=== PATIENT | female | born 1955 | race Caucasian/White ===

== ENCOUNTER 2017-02-15 15:37 | Emergency (ER) | payer OTHER ==
[2017-02-15 16:18] VITALS: BMI 29.0
--- NOTE | 2017-02-15 17:20 | PDOC ---
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 The patient reports coughing up 1-2 tablespoons of bright red blood 2 nights ago, with no hemoptysis since. Not on blood thinners. The patient is currently on the liver transplant list at [facility] and when she called Dr. Rios's office today, they advised her to go to the closest ED. She denies recent fevers, chills, headache or dizziness. She denies N/V/D, recent constipation. She denies recent dysuria, frequency, urgency or hematuria. She denies recent chest pain or shortness of breath. Allergies: NKA Past surgical history: None reported. Social history: Nonsmoker. Denies EtOH use and recreational drug use. Primary Care Physician: Dr. Rios [phone] <Popeye Rivera - Last Filed: 02/15/17 18:56> <Art Iglesias - Last Filed: 02/15/17 23:32> - General Chief Complaint: Hemoptysis Stated Complaint: VOMITING BLOOD (PCP SENT) Time Seen by Provider: 02/15/17 17:20 Past History <Popeye Rivera - Last Filed: 02/15/17 18:56> - Past Medical History GI Disorders: Yes (ESOPHAGEAL VARICES) Liver Disease: Yes (CIRRHOSIS (PSC), ON TRANSPLANT LIST.) - Surgical History Abdominal Surgery: Yes (ERCP, VARICES BANDING, STENTS) - Immunization History Td Vaccination: Yes Immunization Up to Date: (UNSURE) - Psycho/Social/Smoking Cessation Hx Anxiety: No Suicidal Ideation: No Smoking Status: No Smoking History: Never smoked Years of Tobacco Use: 0 Have you smoked in the past 12 months: No Number of Cigarettes Smoked Daily: 0 Cigars Per Day: 0 Hx Alcohol Use: No Drug/Substance Use Hx: No Substance Use Type: None <Art Iglesias - Last Filed: 02/15/17 23:32> - Past Medical History Allergies/Adverse Reactions: Allergies Allergy/AdvReac Type Severity Reaction Status Date / Time amoxicillin [Amoxicillin] Allergy Verified 02/15/17 16:18 Home Medications: Ambulatory Orders Nadolol [Corgard] 40 mg PO DAILY #0 tablet 01/14/12 Furosemide [Lasix -] 40 mg PO DAILY 02/15/17 Spironolactone 50 mg PO DAILY 02/15/17 Review of Systems - Review of Systems Able to Perform ROS?: Yes Comments:: 02/15/17 18:48 GENERAL/CONSTITUTIONAL: No fever or chills. No weakness. HEAD, EYES, EARS, NOSE AND THROAT: No change in vision. No ear pain or discharge. No sore throat. CARDIOVASCULAR: No chest pain or shortness of breath. RESPIRATORY: No cough, wheezing, or hemoptysis. GASTROINTESTINAL: +hemoptysis. No or constipation. No N/V/D. GENITOURINARY: No dysuria, frequency, or change in urination. MUSCULOSKELETAL: No joint or muscle swelling or pain. No neck or back pain. SKIN: No rash NEUROLOGIC: No headache, vertigo, loss of consciousness, or change in strength/ sensation. ENDOCRINE: No increased thirst. No abnormal weight change. HEMATOLOGIC/LYMPHATIC: No anemia, easy bleeding, or history of blood clots. ALLERGIC/IMMUNOLOGIC: No hives or skin allergy. <Popeye Rivera - Last Filed: 02/15/17 18:56> *Physical Exam - Vital Signs Last Vital Signs Temp Pulse Resp BP Pulse Ox 97.6 F 63 20 119/54 98 02/15/17 16:15 02/15/17 16:15 02/15/17 16:15 02/15/17 16:15 02/15/17 16:15 - Physical Exam Comments: 02/15/17 18:48 GENERAL: Awake, alert, and fully oriented, in no acute distress HEAD: No signs of trauma EYES: PERRLA, EOMI, sclera anicteric, conjunctiva clear ENT: Auricles normal inspection, hearing grossly normal, nares patent, oropharynx clear without exudates. Moist mucosa NECK: Normal ROM, supple, no lymphadenopathy, JVD, or masses LUNGS: Breath sounds equal, clear to auscultation bilaterally. No wheezes, and no crackles HEART: Regular rate and rhythm, normal S1 and S2, no murmurs, rubs or gallops ABDOMEN: Not remarkable. Soft, nontender, normoactive bowel sounds. No guarding , no rebound. No masses EXTREMITIES: Normal range of motion, no edema. No clubbing or cyanosis. No cords , erythema, or tenderness NEUROLOGICAL: Normal speech, cranial nerves intact, negative pronator drift, 5/ 5 strength in all 4 extremities, normal sensation to light touch in all 4 extremities, normal cerebellar exam, normal gait, normal reflexes and tone SKIN: Warm, Dry, normal turgor, no rashes or lesions noted. 02/15/17 18:56 <Popeye Rivera - Last Filed: 02/15/17 18:56> - Vital Signs Last Vital Signs Temp Pulse Resp BP Pulse Ox 97.6 F 63 20 119/54 98 02/15/17 16:15 02/15/17 16:15 02/15/17 16:15 02/15/17 16:15 02/15/17 16:15 <Art Iglesias - Last Filed: 02/15/17 23:32> ED Treatment Course - LABORATORY CBC & Chemistry Diagram: 02/15/17 20:10 02/15/17 20:10 <Art Iglesias - Last Filed: 02/15/17 23:32> Medical Decision Making - Medical Decision Making 02/15/17 18:26 61yo F hx PSC on liver transplant list p/w hemoptysis 2 days ago. Exam and vitals here unremarkable. Upon speaking with Jennifer, the regional education coordinator at [facility], pt frequently has hemoptysis thought to be 2/2 lung nodules and chronic MAC infection. We agreed upon a plan to check labs, observe the patient and if our work up was negative, pt can follow up with Dr. Rios within 1 week. -labs -CXR -call Jennifer again post labs/CXR -reassess 02/15/17 19:00 Labs pending. Pt signed out to Dr. Willingham for further evaluation and management. <Art Iglesias - Last Filed: 02/15/17 23:32> *DC/Admit/Observation/Transfer - Attestations Scribe Attestion: 02/15/17 18:48 Documentation prepared by Popeye Rivera, acting as medical psychotherapist for Art Iglesias MD. <Popeye Rivera - Last Filed: 02/15/17 18:56> - Discharge Dispostion Admit: No - Attestations Physician Attestion: 02/15/17 23:32 I, Dr. Art Iglesias MD, attest that this document has been prepared under my direction and personally reviewed by me in its entirety. I further attest, that it accurately reflects all work, treatment, procedures and medical decision -making performed by me. <Art Iglesias - Last Filed: 02/15/17 23:32> Diagnosis at time of Disposition: Hemoptysis, unspecified - Discharge Dispostion Disposition: HOME Condition at time of disposition: Stable - Referrals Referrals: Antelmo Rios [Primary Care Provider] - - Patient Instructions Printed Discharge Instructions: DI for Hemoptysis Additional Instructions: Please follow up with Dr. Rios at [facility] in the morning.
[2017-02-15 19:21] LABS: BASOPHIL 0.6 % (0-2.0); EOSINOPHIL 3.5 % (0-4.5); MCH 32.8 pg (25.7-33.7); MCHC 34.2 g/dl (32.0-36.0); MEAN CELL VOLUME 95.7 fl (80-96); MEAN PLT VOLUME 10.3 fl (7.5-11.1); NEUTROPHILS 67.8 % (42.8-82.8); PLATELET COUNT 78 K/MM3 (134-434); RDW 14.4 % (11.6-15.6); WHITE BLOOD COUNT 3.3 K/mm3 (4.0-10.0)
[2017-02-15 19:28] VITALS: PULSE 57
[2017-02-15 20:22] LABS: MCH 32.4 pg (25.7-33.7); MCHC 33.7 g/dl (32.0-36.0); MEAN CELL VOLUME 96.1 fl (80-96); MEAN PLT VOLUME 10.5 fl (7.5-11.1); PLATELET COUNT 70 K/MM3 (134-434); RDW 14.8 % (11.6-15.6); WHITE BLOOD COUNT 3.6 K/mm3 (4.0-10.0)
[2017-02-15 20:35] LABS: INR 1.51 (0.82-1.09); PROTHROMBIN TIME (PATIENT) 16.7 SEC (9.98-11.88)
[2017-02-15 20:37] LABS: ACTIVATED PTT 32.8 SECONDS (26.9-34.4)
[2017-02-15 20:53] LABS: ANION GAP 6 (8-16); BILIRUBIN,TOTAL 2.6 mg/dL (0.2-1.0); CALCIUM 8.6 mg/dL (8.5-10.1); CO2 25 mmol/L (21-32); GLUCOSE,RANDOM 78 mg/dL (74-106); SGOT/AST 87 U/L (15-37); SGPT/ALT 63 U/L (12-78); TOT PROT 8.2 g/dl (6.4-8.2)
[2017-02-15 20:54] LABS: ALK PHOS 278 U/L (45-117)
[2017-02-15 21:07] LABS: PLATELET ESTIMATE DECREASED (NORMAL)
--- NOTE | 2017-02-15 21:07 | PDOC ---
*Physical Exam - Vital Signs Last Vital Signs Temp Pulse Resp BP Pulse Ox 98.1 F 57 L 17 127/53 100 02/15/17 19:27 02/15/17 19:27 02/15/17 19:27 02/15/17 19:27 02/15/17 19:27 ED Treatment Course - LABORATORY CBC & Chemistry Diagram: 02/15/17 20:10 02/15/17 20:10 - ADDITIONAL ORDERS Additional order review: Laboratory Results 02/15/17 02/15/17 02/15/17 20:10 20:10 19:05 INR 1.51 H PTT (Actin FS) 32.8 Sodium 135 L Potassium 4.2 Chloride 104 Carbon Dioxide 25 Anion Gap 6 L BUN 20 H D Creatinine 1.0 D Creat Clearance w eGFR 56.37 Random Glucose 78 D Calcium 8.6 Total Bilirubin 2.6 H D AST 87 H ALT 63 Alkaline Phosphatase 278 H D Total Protein 8.2 Albumin 3.0 L Blood Type Cancelled Antibody Screen Cancelled Spec Expiration Date Cancelled 02/15/17 02/15/17 19:05 19:05 INR Cancelled PTT (Actin FS) Cancelled Sodium Cancelled Potassium Cancelled Chloride Cancelled Carbon Dioxide Cancelled Anion Gap Cancelled BUN Cancelled Creatinine Cancelled Creat Clearance w eGFR Cancelled Random Glucose Cancelled Calcium Cancelled Total Bilirubin Cancelled AST Cancelled ALT Cancelled Alkaline Phosphatase Cancelled Total Protein Cancelled Albumin Cancelled Blood Type Antibody Screen Spec Expiration Date 02/15/17 02/15/17 20:10 19:05 RBC 3.86 4.00 MCV 96.1 H 95.7 MCHC 33.7 34.2 RDW 14.8 14.4 MPV 10.5 10.3 Neutrophils % Y 67.8 Lymphocytes % Y 17.8 Monocytes % 10.3 H Eosinophils % 3.5 Basophils % 0.6 Medical Decision Making - Medical Decision Making 02/15/17 21:04 Spoke to Jennifer at [facility]. Pt will be discharged and she will be advised to follow up with Dr. Wagner at [facility] in the morning. *DC/Admit/Observation/Transfer Diagnosis at time of Disposition: Hemoptysis - Discharge Dispostion Disposition: HOME Condition at time of disposition: Stable Admit: No - Referrals Referrals: Antelmo Wagner [Primary Care Provider] - - Patient Instructions Printed Discharge Instructions: DI for Hemoptysis Additional Instructions: Please follow up with Dr. Wagner at [facility] in the morning. - Post Discharge Activity
[2017-02-15 21:08] LABS: TOTAL CELLS COUNTED 100
[2017-02-15 21:18] VITALS: BP 118/52; TEMP 97.4
== END 2017-02-15 21:18 | disposition home or self-care (01) ==
LOC: JER 15:37
DX: R04.2 Hemoptysis (principal); K74.69 Other cirrhosis of liver
CPT/HCPCS: 36415; 71020-TC; 80053; 85025; 85610; 85730; 86850; 86900; 86901; 99283-25

== ENCOUNTER 2017-06-16 13:09 | Observation (INO) | payer OTHER ==
[2017-06-16 13:27] VITALS: BMI 29.8
--- NOTE | 2017-06-16 14:03 | PDOC ---
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 The patient reports coughing up blood beginning earlier this morning. She contacted her physician Dr. Rios who recommended she present to the ED for evaluation. The patient reports coughing up a total of about 1/2 a cup of blood since this morning. She notes that she has had a history of hemoptysis in the past thought to be due to her MAC infection and lung nodules. She currently denies any fevers, chills, chest pain, abdominal pain, nausea, vomiting, or changes with urination or bowel movements. Past History - Past Medical History Allergies/Adverse Reactions: Allergies Allergy/AdvReac Type Severity Reaction Status Date / Time amoxicillin [Amoxicillin] Allergy Verified 06/16/17 13:23 Home Medications: Ambulatory Orders Nadolol [Corgard] 40 mg PO DAILY #0 tablet 01/14/12 Furosemide [Lasix -] 40 mg PO DAILY 02/15/17 Carbamide Peroxide [Ear Drops] 15 ml OT ASDIR 06/16/17 Omeprazole 20 mg PO ASDIR PRN 06/16/17 COPD: No GI Disorders: Yes (ESOPHAGEAL VARICES) Liver Disease: Yes (CIRRHOSIS (PSC), ON TRANSPLANT LIST.) - Surgical History Abdominal Surgery: Yes (ERCP, VARICES BANDING, STENTS) - Immunization History Td Vaccination: Yes Immunization Up to Date: (UNSURE) - Suicide/Smoking/Psychosocial Hx Smoking Status: No Smoking History: Never smoked Years of Tobacco Use: 0 Have you smoked in the past 12 months: No Number of Cigarettes Smoked Daily: 0 Cigars Per Day: 0 Hx Alcohol Use: No Drug/Substance Use Hx: No Substance Use Type: None Review of Systems - Review of Systems Comments:: 06/16/17 14:33 Constitutional: No fevers, chills, fatigue, malaise HEENT: No Rhinorrhea, nasal congestion, visual changes Cardiovascular: No chest pain, syncope, palpitations, lightheadedness Respiratory: SOB, Hemoptysis. No Cough, Gastrointestinal: No Abdominal pain, Nausea, Vomiting, Constipation, Diarrhea, Melena Genitourinary: No Dysuria, Frequency, Urgency, Hesitancy, Hematuria, Flank pain Musculoskeletal: No Myalgia, arthralgia Skin: No rashes, bruising, pallor Neurologic: No Headache, Dizziness, Numbness, Weakness, or Tingling Psychiatric: No Hallucinations. No SI or HI *Physical Exam - Vital Signs Last Vital Signs Temp Pulse Resp BP Pulse Ox 97.8 F 65 19 110/60 99 06/16/17 13:23 06/16/17 13:23 06/16/17 13:23 06/16/17 13:23 06/16/17 13:23 - Physical Exam Comments: 06/16/17 14:34 General Appearance: Nourished. No Apparent Distress HEENT: EOMI, JENNIFER. No Pharyngeal Erythema, Tonsillar Exudate, Tonsillar Erythema Neck: No Cervical Lymphadenopathy Respiratory/Chest: Lungs Clear, Normal Breath Sounds. No Crackles, Rales, Rhonchi, Wheezing Cardiovascular: Regular Rhythm, Regular Rate. No Murmur, Gallops, Rubs Gastrointestinal/Abdominal: Normal Bowel Sounds, Soft. No Guarding, Rebound, Tenderness Musculoskeletal: No CVA Tenderness Extremity: No lower extremity edema noted on exam. 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 Differential includes but is not limited to: Anemia, MAC, chronic hemoptysis, infectious, metabolic derangement. Given her similar symptoms to previous presentations for hemoptysis, it is likely her current symptoms are related. We will obtain a cbc, cmp, coags, type and screen , and chest plain film to evaluate further. We will continue to monitor and reassess. 06/16/17 18:00 CBC, cmp, coags are unremarkable. Chest plain film does not demonstrate any new changes. We attempted to get in contact with the patient's primary Dr. Rios , however, have been unsuccessful thus far. Given the patient has not had a ct chest in several years here and that she states her symptoms are the worse than they have been in the past, we will obtain a ct chest to evaluate further. 06/16/17 19:00 Patient signed out to the night team. Dispo pending CT chest. *DC/Admit/Observation/Transfer Diagnosis at time of Disposition: Hemoptysis - Referrals - Patient Instructions - Post Discharge Activity
--- NOTE | 2017-06-16 14:14 | PDOC ---
Attending Attestation - Resident Resident Name: Aly Cortezel - ED Attending Attestation I have performed the following: I have examined & evaluated the patient, The case was reviewed & discussed with the resident, I agree w/resident's findings & plan, Exceptions are as noted - HPI HPI: 06/16/17 14:13 62y F hx of chronic MAC infection eso varices, liver cirrhosis, on transplant list, secondary to Primary sclerosing cholangitis presents with hemoptysis. Pt states she was feeling well recently, was greg gto a doctors appointment when she started coughing and eventually coughed up some blood. Pt endorses mild sob - states she currently is feeling better without any cough. She states when she takes her cough medicine, it usually is enough to stop her coughing. pt denies any lightheadedness, cp, neff, palpitations. was recently on abx for her MAC ( follows up with ID at [facility]) on exam pts lungs are clear she is in no acut edistress cardiac exam reveals rrr, no m/r/g mild pitting edema in the LE b/l without calf tenderness. vitals are normal - no signs of hypotension, tachycardia suspect mild hemoptysis due to her MAC will r/o anemia cxr to ro mass will d/w with her pmd at dispo - Physicial Exam PE: 06/18/17 08:21 see abve - Medical Decision Making 06/18/17 08:22 se above
[2017-06-16 17:09] LABS: BASO % 0.1 % (0-2.0); EOS % 2.2 % (0-4.5); HEMATOCRIT 38.7 % (32.4-45.2); HEMOGLOBIN 12.8 GM/dL (10.7-15.3); LYMPH % 18.9 % (8-40); MCH 32.1 pg (25.7-33.7); MCHC 33.1 g/dl (32.0-36.0); MEAN PLT VOLUME 10.4 fl (7.5-11.1); MONO % 9.4 % (3.8-10.2); NEUT % 69.4 % (42.8-82.8); PLATELET COUNT 67 K/MM3 (134-434); RBC 3.99 M/mm3 (3.60-5.2); RDW 14.6 % (11.6-15.6); WHITE BLOOD COUNT 2.3 K/mm3 (4.0-10.0)
[2017-06-16 17:10] LABS: INR 1.4 (0.82-1.09); PROTHROMBIN TIME (PATIENT) 15.8 SEC (9.98-11.88)
[2017-06-16 17:12] LABS: ACTIVATED PTT 35.8 SECONDS (26.9-34.4)
[2017-06-16 17:40] LABS: ALBUMIN 2.8 g/dl (3.4-5.0); ANION GAP 6 (8-16); BLOOD UREA NITROGEN 19 mg/dL (7-18); CALCIUM 7.8 mg/dL (8.5-10.1); CHLORIDE 106 mmol/L (98-107); CO2 27 mmol/L (21-32); CREATININE 0.9 mg/dL (0.55-1.02); GLUCOSE,RANDOM 85 mg/dL (74-106); POTASSIUM 3.9 mmol/L (3.5-5.1); SGOT/AST 63 U/L (15-37); SGPT/ALT 50 U/L (12-78); SODIUM 139 mmol/L (136-145)
[2017-06-16 17:42] LABS: ALK PHOS 263 U/L (45-117); BILIRUBIN,TOTAL 2.2 mg/dL (0.2-1.0); TOT PROT 7.9 g/dl (6.4-8.2)
--- NOTE | 2017-06-16 22:38 | PDOC ---
History of Present Illness - General Chief Complaint: Hemoptysis Stated Complaint: COUGHING BLOOD Time Seen by Provider: 06/16/17 13:47 Past History - Past Medical History Allergies/Adverse Reactions: Allergies Allergy/AdvReac Type Severity Reaction Status Date / Time amoxicillin [Amoxicillin] Allergy Verified 06/16/17 13:23 Home Medications: Ambulatory Orders Nadolol [Corgard] 40 mg PO DAILY #0 tablet 01/14/12 Furosemide [Lasix -] 40 mg PO DAILY 02/15/17 Carbamide Peroxide [Ear Drops] 15 ml OT ASDIR 06/16/17 Omeprazole 20 mg PO ASDIR PRN 06/16/17 COPD: No GI Disorders: Yes (ESOPHAGEAL VARICES) Liver Disease: Yes (CIRRHOSIS (PSC), ON TRANSPLANT LIST.) - Surgical History Abdominal Surgery: Yes (ERCP, VARICES BANDING, STENTS) - Immunization History Td Vaccination: Yes Immunization Up to Date: (UNSURE) - Suicide/Smoking/Psychosocial Hx Smoking Status: No Smoking History: Never smoked Years of Tobacco Use: 0 Have you smoked in the past 12 months: No Number of Cigarettes Smoked Daily: 0 Cigars Per Day: 0 Hx Alcohol Use: No Drug/Substance Use Hx: No Substance Use Type: None *Physical Exam - Vital Signs Last Vital Signs Temp Pulse Resp BP Pulse Ox 97.8 F 65 19 110/60 99 06/16/17 13:23 06/16/17 13:23 06/16/17 13:23 06/16/17 13:23 06/16/17 13:23 ED Treatment Course - LABORATORY CBC & Chemistry Diagram: 06/16/17 16:30 06/16/17 16:30 - ADDITIONAL ORDERS Additional order review: Laboratory Results 06/16/17 06/16/17 06/16/17 16:30 16:30 16:30 PT with INR 15.80 H INR 1.40 H PTT (Actin FS) 35.8 H Sodium 139 Potassium 3.9 Chloride 106 Carbon Dioxide 27 Anion Gap 6 L BUN 19 H Creatinine 0.9 Creat Clearance w eGFR > 60 Random Glucose 85 Calcium 7.8 L Total Bilirubin 2.2 H AST 63 H D ALT 50 D Alkaline Phosphatase 263 H Total Protein 7.9 Albumin 2.8 L Blood Type O NEGATIVE Antibody Screen Negative 06/16/17 16:30 RBC 3.99 MCV 97.0 H MCHC 33.1 RDW 14.6 MPV 10.4 Neutrophils % 69.4 Lymphocytes % 18.9 Monocytes % 9.4 Eosinophils % 2.2 Basophils % 0.1 Medical Decision Making - Medical Decision Making 06/16/17 22:37 Pt was signed out by day team. Pt is a 62 y/o F with complex medical history including chronic MAC, lung nodules, cirrhosis 2/2 cholangitis, and esophageal varices who came to ED with hemoptysis. Pt is comfortable, but still having hempoptysis. CT significant for bronchial wall thickening, traction bronchiectasis, new solitary pulm nodule, amongst other findings. I've spoken with pt's doctor at [place] Dr. Graves ([phone]) several times throughout the evening providing updates. Her recommendation was to admit the pt for 24 hours of observation due to the fact that the patient is still having hemoptysis and should be monitored. *DC/Admit/Observation/Transfer Diagnosis at time of Disposition: Hemoptysis - Discharge Dispostion Admit: Yes - Referrals - Patient Instructions - Post Discharge Activity
--- NOTE | 2017-06-16 23:07 | PN ---
Teaching Attending Note Name of Resident: Ana Tabares ATTENDING PHYSICIAN STATEMENT I saw and evaluated the patient. Chart, data, imaging reviewed. I reviewed the resident's note and discussed the case with the resident. I agree with the resident's findings and plan as documented. SUBJECTIVE: 62F with PMH of hemoptysis 2/2 chronic MAC infection, 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 She has had scant amounts of blood visible in cough, about half a cup. Denied any hematemesis. Patient has not been taking and anticoagulation. OBJECTIVE: Last Vital Signs Temp Pulse Resp BP Pulse Ox 97.6 F 73 16 105/65 98 06/17/17 06:19 06/17/17 06:19 06/17/17 06:19 06/17/17 06:19 06/17/17 06:19 general -nad, aaox3, communicates fluently heent- at, nc , moist oral mucosa neck -supple, no masses, no jvd cv -s1+s2+ rrr chest- cta b/l abdomen- soft, nt, no masses appreciated ext- no swelling Abnormal Lab Results 06/16/17 06/16/17 06/16/17 16:30 16:30 16:30 WBC 2.3 L D RBC MCV 97.0 H Plt Count 67 L PT with INR 15.80 H INR 1.40 H PTT (Actin FS) 35.8 H Anion Gap 6 L BUN 19 H Calcium 7.8 L Total Bilirubin 2.2 H AST 63 H D Alkaline Phosphatase 263 H Albumin 2.8 L 06/17/17 06/17/17 05:58 05:58 WBC 2.2 L RBC 3.46 L MCV 96.3 H Plt Count 59 L PT with INR 16.90 H INR 1.50 H PTT (Actin FS) Anion Gap BUN Calcium Total Bilirubin AST Alkaline Phosphatase Albumin Chest CT -> Bronchial wall thickening. Traction bronchiectasis. Numerous nodules. ASSESSMENT AND PLAN: #Hemoptysis - in setting of elevated coagulation studies 2/2 liver failure. -observation -vitamin K 5 mg PO ordered -monitor H,H and signs of subsequent hematemesis. -avoid anticoagulants and antiplatelet agents -if worsening hemoptysis, consider FFPs #MAC- pulmonary?- currently off antibiotics, numerous nodules seen on chest ct -obtain records about treatment history from outside hospital -continue home medications for chronic medical problems #DVT ppx - SCDs -avoid heparin as pt was with hemoptysis
--- NOTE | 2017-06-16 23:26 | HP ---
CHIEF COMPLAINT: hemoptysis PCP: Dr. 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 Pt reports ~ 1/2 cup blood coughed up since this morning, last episode prior to Chest CT (~7: 30pm). Pt is not on any blood thinners. Pt denies pain. Pt's last visit to this ER in 02/2017, for same presentation. Pt reports she follow-up with her PCP until the hemoptysis stopped last time. Pt reports taking different antibiotics for her chronic MAC infection, but not currently on any antibiotics per her PCP's instructions. Pt denies chest pain, palpitations, sob, abdominal pain, nausea, vomiting, hematemesis, hematuria, hematochezia, melena. ER course was notable for: (1) CXR (2) Chest CT -> Bronchial wall thickening. Traction bronchiectasis. Numerous nodules. (3) CBC -> h/h wnl Recent Travel: denies PAST MEDICAL HISTORY: as above PAST SURGICAL HISTORY: ERCP varices banding (does not recall when) stents Social History: Smoking: denies Alcohol: denies Drugs: denies Work: in an office building Allergies amoxicillin [Amoxicillin] Allergy (Verified 06/16/17 13:23) HOME MEDICATIONS: Home Medications Medication Instructions Recorded Nadolol [Corgard] 40 mg PO DAILY #0 tablet 01/14/12 Furosemide [Lasix -] 40 mg PO DAILY 02/15/17 Carbamide Peroxide [Ear Drops] 15 ml OT ASDIR 06/16/17 Omeprazole 20 mg PO ASDIR PRN 06/16/17 REVIEW OF SYSTEMS CONSTITUTIONAL: Absent: fever, chills, diaphoresis, fatigue, malaise HEENT: Absent: rhinorrhea, nasal congestion, throat pain, visual changes CARDIOVASCULAR: Absent: chest pain, syncope, palpitations, irregular heart rate, lightheadedness , peripheral edema RESPIRATORY: hemoptysis, cough Absent: shortness of breath, wheezing, stridor GASTROINTESTINAL: Absent: abdominal pain, abdominal distension, nausea, vomiting, diarrhea, constipation, melena, hematochezia GENITOURINARY: Absent: dysuria, frequency, urgency, hesitancy, hematuria, flank pain MUSCULOSKELETAL: Absent: myalgia, arthralgia SKIN: Absent: rash, itching, pallor HEMATOLOGIC/IMMUNOLOGIC: Absent: easy bleeding, easy bruising NEUROLOGIC: mild dizziness when having hemoptysis Absent: headache, focal weakness or paresthesias PHYSICAL EXAMINATION Vital Signs - 24 hr 06/16/17 13:23 Temperature 97.8 F Pulse Rate 65 Respiratory 19 Rate Blood Pressure 110/60 O2 Sat by Pulse 99 Oximetry (%) GENERAL: Awake, alert, and fully oriented, in no acute distress. HEAD: Normal with no signs of trauma. EYES: Extraocular movements intact, sclera anicteric, conjunctiva clear. No lid lag. EARS, NOSE, THROAT: Oropharynx clear without exudates. Moist mucous membranes. NECK: Normal range of motion, supple without lymphadenopathy, JVD, or masses. LUNGS: Breath sounds equal, clear to auscultation bilaterally. No wheezes, and no crackles. No accessory muscle use. HEART: Regular rate and rhythm, +S1/S2. ABDOMEN: Soft, nontender, not distended, normoactive bowel sounds, no guarding. LOWER EXTREMITIES: Warm, well-perfused. No calf tenderness. No peripheral edema. NEUROLOGICAL: Cranial nerves II-XII grossly intact. Normal speech. PSYCHIATRIC: Cooperative. Good eye contact. Appropriate mood and affect. SKIN: Warm, dry, normal turgor, no rashes or lesions noted. Laboratory Results - last 24 hr 06/16/17 06/16/17 06/16/17 16:30 16:30 16:30 WBC 2.3 L D RBC 3.99 Hgb 12.8 Hct 38.7 MCV 97.0 H MCH 32.1 MCHC 33.1 RDW 14.6 Plt Count 67 L MPV 10.4 Neutrophils % 69.4 Lymphocytes % 18.9 Monocytes % 9.4 Eosinophils % 2.2 Basophils % 0.1 PT with INR 15.80 H INR 1.40 H PTT (Actin FS) 35.8 H Sodium Potassium Chloride Carbon Dioxide Anion Gap BUN Creatinine Creat Clearance w eGFR Random Glucose Calcium Total Bilirubin AST ALT Alkaline Phosphatase Total Protein Albumin Blood Type O NEGATIVE Antibody Screen Negative 06/16/17 16:30 WBC RBC Hgb Hct MCV MCH MCHC RDW Plt Count MPV Neutrophils % Lymphocytes % Monocytes % Eosinophils % Basophils % PT with INR INR PTT (Actin FS) Sodium 139 Potassium 3.9 Chloride 106 Carbon Dioxide 27 Anion Gap 6 L BUN 19 H Creatinine 0.9 Creat Clearance w eGFR > 60 Random Glucose 85 Calcium 7.8 L Total Bilirubin 2.2 H AST 63 H D ALT 50 D Alkaline Phosphatase 263 H Total Protein 7.9 Albumin 2.8 L Blood Type Antibody Screen IMAGIN06/16/17 CXR -> reticulonodular opacities in Right upper lung with bronchiectasis (similar to prior study). Prominent tom lalito (similar to prior study) and may be 2/2 lymphadenopathy and/or distended pulmonary vasculature. 06/16/[address] -> Bronchial wall thickening. Traction bronchiectasis. Numerous nodules presumably post-infectious/post-inflammatory. Numerous prominent mediastinal and Right hilar lymph nodes (similar to prior study). Shrunken Left hepatic lobe with nodular contour. Interval increase in intrahepatic ductal dilation within the Left hepatic lob (correlate wtih serum biliary markers and hx). Consider f/u with nonemergent MRCP. Multiple prominent gastrohepatic lymph nodes (similar to prior study). 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 Rios at [facility]) and not taking any antibiotics at this time because of side effect of nausea she often experiences. - f/u outpt # cirrhosis - continue home med of Lasix - consider adding Spironolactone # esophageal varices - continue home med of Corgard # chronic lung nodules - f/u outpt # FEN - Fluids: consider IVFs - Electrolytes: wnl, continue to monitor - Nutrition: npo # prophylaxis - DVT ppx with early ambulation - GI ppx with home med of Omeprazole Visit type - Emergency Visit Emergency Visit: Yes ED Registration Date: 06/16/17 Care time: The patient presented to the Emergency Department on the above date and was hospitalized for further evaluation of their emergent condition. - New Patient This patient is new to me today: Yes Date on this admission: 06/17/17 - Critical Care Critical Care patient: No
[2017-06-17] MEDS ORDERED: PHYTONADIONE 5 MG TABLET PO ONE (04:53)
[2017-06-17 06:13] LABS: HEMATOCRIT 33.3 % (32.4-45.2); HEMOGLOBIN 11.2 GM/dL (10.7-15.3); MCH 32.4 pg (25.7-33.7); MCHC 33.7 g/dl (32.0-36.0); MEAN CELL VOLUME 96.3 fl (80-96); MEAN PLT VOLUME 10.5 fl (7.5-11.1); PLATELET COUNT 59 K/MM3 (134-434); RBC 3.46 M/mm3 (3.60-5.2); RDW 14.3 % (11.6-15.6); WHITE BLOOD COUNT 2.2 K/mm3 (4.0-10.0)
[2017-06-17 06:26] LABS: INR 1.5 (0.82-1.09); PROTHROMBIN TIME (PATIENT) 16.9 SEC (9.98-11.88)
[2017-06-17 06:29] LABS: ACTIVATED PTT 31.3 SECONDS (26.9-34.4)
[2017-06-17 06:35] LABS: ALBUMIN 2.4 g/dl (3.4-5.0); ALK PHOS 199 U/L (45-117); ANION GAP 6 (8-16); BILIRUBIN,TOTAL 2.6 mg/dL (0.2-1.0); BLOOD UREA NITROGEN 18 mg/dL (7-18); CALCIUM 7.8 mg/dL (8.5-10.1); CHLORIDE 109 mmol/L (98-107); CO2 25 mmol/L (21-32); CREATININE 0.8 mg/dL (0.55-1.02); GLUCOSE,RANDOM 82 mg/dL (74-106); POTASSIUM 3.9 mmol/L (3.5-5.1); SGOT/AST 52 U/L (15-37); SGPT/ALT 42 U/L (12-78); SODIUM 140 mmol/L (136-145); TOT PROT 6.7 g/dl (6.4-8.2)
[2017-06-17 12:25] LABS: BASO % 0.2 % (0-2.0); EOS % 1.9 % (0-4.5); HEMATOCRIT 35.2 % (32.4-45.2); HEMOGLOBIN 11.7 GM/dL (10.7-15.3); LYMPH % 19.7 % (8-40); MCH 32.4 pg (25.7-33.7); MCHC 33.3 g/dl (32.0-36.0); MEAN CELL VOLUME 97.2 fl (80-96); MEAN PLT VOLUME 9.7 fl (7.5-11.1); MONO % 10.5 % (3.8-10.2); NEUT % 67.7 % (42.8-82.8); PLATELET COUNT 50 K/MM3 (134-434); RBC 3.62 M/mm3 (3.60-5.2); RDW 14.5 % (11.6-15.6); WHITE BLOOD COUNT 2.4 K/mm3 (4.0-10.0)
--- NOTE | 2017-06-17 13:05 | DS ---
Physical Exam: SUBJECTIVE: Patient seen and examined. asymptomatic. states she had 1 episodes of hemoptysis since arrival to ER. states it was about 1 tablespoon which was improved from previous where she was coughing up a "cup of blood". tolerated breakfast without difficutly. denies CP, SOB, fever, chills, N/V/C/D or hemetemsis. claims medication compliance. last saw GI in february and repeat EGD showed stable varices per pt. OBJECTIVE: Vital Signs Period Temp Pulse Resp BP Sys/Guevara Pulse Ox Last 24 Hr 97.6 F-98 F 65-73 16-19 105-118/59-65 97-99 PHYSICAL EXAM GENERAL: The patient is awake, alert, and fully oriented, in no acute distress. HEAD: Normal with no signs of trauma. EYES: PERRL, extraocular movements intact, sclera anicteric, conjunctiva clear. ENT: Ears normal, nares patent, oropharynx clear without exudates, moist mucous membranes. NECK: Trachea midline, full range of motion, supple. LUNGS: Breath sounds equal, clear to auscultation bilaterally, no wheezes, no crackles, no accessory muscle use. HEART: Regular rate and rhythm, S1, S2 without murmur, rub or gallop. ABDOMEN: Soft, nontender, nondistended, normoactive bowel sounds, no guarding, no rebound, no hepatosplenomegaly, no masses. EXTREMITIES: 2+ pulses, warm, well-perfused, no edema. NEUROLOGICAL: Cranial nerves II through XII grossly intact. Normal speech, gait not observed. PSYCH: Normal mood, normal affect. SKIN: Warm, dry, normal turgor, no rashes or lesions noted. LABS Laboratory Results - last 24 hr 06/16/17 06/16/17 06/16/17 16:30 16:30 16:30 WBC 2.3 L D RBC 3.99 Hgb 12.8 Hct 38.7 MCV 97.0 H MCH 32.1 MCHC 33.1 RDW 14.6 Plt Count 67 L MPV 10.4 Neutrophils % 69.4 Lymphocytes % 18.9 Monocytes % 9.4 Eosinophils % 2.2 Basophils % 0.1 PT with INR 15.80 H INR 1.40 H PTT (Actin FS) 35.8 H Sodium Potassium Chloride Carbon Dioxide Anion Gap BUN Creatinine Creat Clearance w eGFR Random Glucose Calcium Total Bilirubin AST ALT Alkaline Phosphatase Total Protein Albumin Blood Type O NEGATIVE Antibody Screen Negative 06/16/17 06/17/17 06/17/17 16:30 05:40 05:58 WBC 2.2 L RBC 3.46 L Hgb 11.2 D Hct 33.3 MCV 96.3 H MCH 32.4 MCHC 33.7 RDW 14.3 Plt Count 59 L MPV 10.5 Neutrophils % Lymphocytes % Monocytes % Eosinophils % Basophils % PT with INR INR PTT (Actin FS) Sodium 139 140 Potassium 3.9 3.9 Chloride 106 109 H Carbon Dioxide 27 25 Anion Gap 6 L 6 L BUN 19 H 18 Creatinine 0.9 0.8 Creat Clearance w eGFR > 60 > 60 Random Glucose 85 82 Calcium 7.8 L 7.8 L Total Bilirubin 2.2 H 2.6 H AST 63 H D 52 H ALT 50 D 42 Alkaline Phosphatase 263 H 199 H D Total Protein 7.9 6.7 Albumin 2.8 L 2.4 L Blood Type Antibody Screen 06/17/17 06/17/17 05:58 12:10 WBC 2.4 L RBC 3.62 Hgb 11.7 Hct 35.2 MCV 97.2 H MCH 32.4 MCHC 33.3 RDW 14.5 Plt Count 50 L MPV 9.7 Neutrophils % 67.7 Lymphocytes % 19.7 Monocytes % 10.5 H Eosinophils % 1.9 Basophils % 0.2 PT with INR 16.90 H INR 1.50 H PTT (Actin FS) 31.3 Sodium Potassium Chloride Carbon Dioxide Anion Gap BUN Creatinine Creat Clearance w eGFR Random Glucose Calcium Total Bilirubin AST ALT Alkaline Phosphatase Total Protein Albumin Blood Type Antibody Screen HOSPITAL COURSE: Date of Admission:06/16/17 Date of Discharge: 06/17/17 admitting diagnosis Hemoptysis, coagulopathy Pre hospital course 62F with PMH of hemoptysis 2/2 chronic MAC infection, 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 She has had scant amounts of blood visible in cough, about half a cup. Denied any hematemesis. Patient has not been taking and anticoagulation. Subsequent hospital course Medicine observation. only 1 episode while in the hospital, states less than at home. Hgb trended and remained stable. no repeated episodes. tolerated diet. discharged home with quick follow up with drafter (cad) electronic (reports she has appt in 1 week) Dr Rios at [facility]. will also need surveillance CT chest in 3 months for new 10mm [place] nodule Minutes to complete discharge: 40 Discharge Summary Reason For Visit: HEMOPTYSIS Current Active Problems Hemoptysis, unspecified (Acute) Cirrhosis (Chronic) Esophageal varices determined by endoscopy (Chronic) Mycobacterial infection, non-TB (Chronic) PSC (primary sclerosing cholangitis) (Chronic) Condition: Improved - Instructions Diet, Activity, Other Instructions: You were seen in the hospital for an episode of coughing up blood. which has now stopped. Your blood counts are stable. It is very important that you follow up with your liver doctor this week. You should have your labs repeated to ensure your counts stay stable. Continue to take your medications as instructed Return to the ER if you start spitting up more blood, or vomiting blood. Disposition: HOME - Home Medications Comprehensive Discharge Medication List: Ambulatory Orders Nadolol [Corgard] 40 mg PO DAILY #0 tablet 01/14/12 Furosemide [Lasix -] 40 mg PO DAILY 02/15/17 Carbamide Peroxide [Ear Drops] 15 ml OT ASDIR 06/16/17 Omeprazole 20 mg PO ASDIR PRN 06/16/17 This patient is new to me today: Yes Date on this admission: 06/17/17 Emergency Visit: Yes ED Registration Date: 06/16/17 Care time: The patient presented to the Emergency Department on the above date and was hospitalized for further evaluation of their emergent condition. Critical Care patient: No - Discharge Referral Referred to [facility] No
[2017-06-17 14:14] VITALS: BP 122/63; PULSE 75; TEMP 98.1
--- NOTE | 2017-06-17 16:35 | EKG ---
Test Reason : Blood Pressure : / mmHG Vent. Rate : 070 BPM Atrial Rate : 070 BPM P-R Int : 150 ms QRS Dur : 096 ms QT Int : 420 ms P-R-T Axes : 049 -03 017 degrees QTc Int : 453 ms NORMAL SINUS RHYTHM NORMAL ECG WHEN COMPARED WITH ECG OF 27-MAR-2013 00:24, NO SIGNIFICANT CHANGE WAS FOUND Confirmed by JAY BRADLEY MD ([id number]) on 06/17/2017 4:35:11 PM Referred By: Confirmed By:JAY BRADLEY MD
== END 2017-06-17 14:15 | disposition home or self-care (01) ==
LOC: JER 13:09 → JERBED 23:05 → UNDOADMOB 23:14 → JERBED 23:14
PROVIDERS: ADMIT Internal Medicine; ATTEND Internal Medicine
DX: R04.2 Hemoptysis (principal); K74.69 Other cirrhosis of liver; I85.00 Esophageal varices without bleeding; R91.8 Other nonspecific abnormal finding of lung field; A31.0 Pulmonary mycobacterial infection; K74.3 Primary biliary cirrhosis
CPT/HCPCS: 36415; 71046-TC; 71260-TC; 80053; 85025; 85027; 85610; 85730; 86850; 86900; 86901; 93005; 93010; 99283-25; G0378

== ENCOUNTER 2019-01-31 02:43 | Emergency (ER) | payer BC, OTHER ==
[2019-01-31 02:50] VITALS: TEMP 97.4; BMI 26.8
--- NOTE | 2019-01-31 03:06 | PDOC ---
History of Present Illness - History of Present Illness Initial Comments: 63 year old female with PMH of MAC colonization and pseudomonal lung infection ( appears to be chronic), hepatic thrombus (unknown etiology), cirrhosis (unknown etiology, possibly cryptogenic), bronchiectasis, and on pradaxa presenting with hemoptysis for the past few hours. Patient states that she is coughing up "chunks" of blood. this episode began with a bout of excessive coughing shortly after which she noticed hemoptysis. She has had bronchoscopy in the past before for a similar issue. She is on the [facility] list. Her mathematics technician is Dr. Cox at [facility]. 01/31/19 04:55 <Priscilla Valdes - Last Filed: 01/31/19 04:55> <Jomar Smith - Last Filed: 01/31/19 06:00> - General Chief Complaint: Hemoptysis Stated Complaint: COUGHING BLOOD Time Seen by Provider: 01/31/19 02:49 Past History - Past Medical History COPD: No GI Disorders: Yes (ESOPHAGEAL VARICES) Liver Disease: Yes (CIRRHOSIS (PSC), ON TRANSPLANT LIST.) - Surgical History Abdominal Surgery: Yes (ERCP, VARICES BANDING, STENTS) - Immunization History Td Vaccination: Yes Immunization Up to Date: (UNSURE) - Suicide/Smoking/Psychosocial Hx Smoking Status: No Smoking History: Never smoked Years of Tobacco Use: 0 Have you smoked in the past 12 months: No Number of Cigarettes Smoked Daily: 0 Cigars Per Day: 0 Information on smoking cessation initiated: No Hx Alcohol Use: No Drug/Substance Use Hx: No Substance Use Type: None <Priscilla Valdes - Last Filed: 01/31/19 04:55> <Jomar Smith - Last Filed: 01/31/19 06:00> - Past Medical History Allergies/Adverse Reactions: Allergies Allergy/AdvReac Type Severity Reaction Status Date / Time amoxicillin [Amoxicillin] Allergy Verified 01/31/19 02:50 Home Medications: Ambulatory Orders Nadolol [Corgard] 40 mg PO DAILY #0 tablet 01/14/12 Furosemide [Lasix -] 40 mg PO DAILY 02/15/17 Carbamide Peroxide [Ear Drops] 15 ml OT ASDIR 06/16/17 Omeprazole 20 mg PO ASDIR PRN 06/16/17 Review of Systems - Review of Systems Constitutional: No: Chills, Diaphoresis, Fever, Unintentional Wgt. Loss HEENTM: No: Eye Pain, Blurred Vision, Tearing Respiratory: Yes: Cough. No: Shortness of Breath <Priscilla Valdes - Last Filed: 01/31/19 04:55> *Physical Exam - Vital Signs Last Vital Signs Temp Pulse Resp BP Pulse Ox 97.4 F L 76 20 99/50 L 100 01/31/19 02:47 01/31/19 02:47 01/31/19 02:47 01/31/19 02:47 01/31/19 02:47 - Physical Exam General Appearance: Yes: Nourished, Appropriately Dressed. No: Apparent Distress HEENT: positive: EOMI, JENNIFER, Normal Voice. negative: Normal ENT Inspection ( posterior pharyngeal eryehe, irritation and clear area of exposed mucousa that doesn't appear to be profusely bleeding.), Pharynx Normal Neck: positive: Trachea midline, Normal Thyroid, Supple. negative: Tender, Rigid Respiratory/Chest: positive: Lungs Clear, Normal Breath Sounds. negative: Chest Tender, Respiratory Distress, Accessory Muscle Use Cardiovascular: positive: Regular Rhythm, Regular Rate Gastrointestinal/Abdominal: positive: Normal Bowel Sounds, Flat, Soft. negative : Tender Lymphatic: negative: Adenopathy, Tenderness Musculoskeletal: positive: Normal Inspection. negative: Decreased Range of Motion Extremity: positive: Normal Capillary Refill, Normal Inspection, Normal Range of Motion. negative: Tender Integumentary: positive: Normal Color, Dry, Warm Neurologic: positive: Fully Oriented, Alert, Normal Mood/Affect, Normal Response , Motor Strength 5/5 <Priscilla Valdes - Last Filed: 01/31/19 04:55> - Vital Signs Last Vital Signs Temp Pulse Resp BP Pulse Ox 97.4 F L 80 22 H 100/47 L 100 01/31/19 02:47 01/31/19 04:37 01/31/19 04:37 01/31/19 04:37 01/31/19 04:37 <Jomar Smith - Last Filed: 01/31/19 06:00> ED Treatment Course - LABORATORY CBC & Chemistry Diagram: 01/31/19 03:00 01/31/19 03:00 <Priscilla Valdes - Last Filed: 01/31/19 04:55> - LABORATORY CBC & Chemistry Diagram: 01/31/19 03:00 01/31/19 03:00 - ADDITIONAL ORDERS Additional order review: Laboratory Results 01/31/19 01/31/19 01/31/19 04:20 03:00 03:00 PT with INR 19.20 H INR 1.62 H PTT (Actin FS) 53.3 H Sodium Potassium Chloride Carbon Dioxide Anion Gap BUN Creatinine Est GFR (CKD-EPI)AfAm Est GFR (CKD-EPI)NonAf Random Glucose Calcium Total Bilirubin AST ALT Alkaline Phosphatase Total Protein Albumin Blood Type Cancelled Antibody Screen Cancelled 01/31/19 03:00 PT with INR INR PTT (Actin FS) Sodium 135 L Potassium 4.0 Chloride 104 Carbon Dioxide 23 Anion Gap 8 BUN 26.2 H Creatinine 1.0 Est GFR (CKD-EPI)AfAm 69.44 Est GFR (CKD-EPI)NonAf 59.91 Random Glucose 102 Calcium 8.6 Total Bilirubin 1.4 H AST 57 H ALT 39 Alkaline Phosphatase 295 H Total Protein 8.0 Albumin 2.7 L Blood Type Antibody Screen 01/31/19 03:00 RBC 3.33 L MCV 95.6 MCHC 33.4 RDW 14.2 MPV 11.1 D Neutrophils % 72.9 Lymphocytes % 11.2 D Monocytes % 13.4 H Eosinophils % 2.2 Basophils % 0.3 - RADIOLOGY Radiology Studies Ordered: Category Date Time Status CHEST PA & LAT [RAD] Stat Radiology 01/31/19 03:34 Taken - Medications Given in the ED: ED Medications Discontinued Medications Generic Name Dose Route Start Last Admin Trade Name Freq PRN Reason Stop Dose Admin Aztreonam 2 gm/ Dextrose 100 mls @ 100 mls/hr 01/31/19 04:34 01/31/19 04:55 IVPB 01/31/19 05:33 100 mls/hr ONCE ONE Administration Sodium Chloride 1,000 ml 01/31/19 04:38 01/31/19 04:41 Normal Saline - IV 01/31/19 04:39 1,000 ml ONCE ONE Administration <Jomar Smith - Last Filed: 01/31/19 06:00> Medical Decision Making - Medical Decision Making 63 year old female with history of bronchiectasis and hemoptysis presenting with hemoptysis for the past few hours. Patient slightly hypotensive to systolics of upper 90s but HR and other VS stable. HgB one point down from 1.5 years prior. CXR wnblk. Spoek to Dr. Dominguez (covering for Dr. Cox) and they would like him transferred to [facility] for further pulmonary evaluation (angio vs. bronch) . Spoke to ED attending and patient accepted for transfer. Started on Aztreonam for pseudomonal infection and given 1L NS for blood pressure., Still exhibiting hemoptysis but mild. 01/31/19 05:25 <Priscilla Valdes - Last Filed: 01/31/19 04:55> *DC/Admit/Observation/Transfer - Discharge Dispostion Decision to Admit order: No <Priscilla Valdes - Last Filed: 01/31/19 04:55> - Attestations Physician Attestion: 01/31/19 06:00 I have reviewed the plan as documented and agree with current plan as documented. Electronically co-signed by Jomar Smith MD <Jomar Smith - Last Filed: 01/31/19 06:00> Diagnosis at time of Disposition: Hemoptysis - Discharge Dispostion Disposition: TRANSFER ACUTE CARE/OTHER HOSP Condition at time of disposition: Stable
[2019-01-31 03:15] LABS: BASO % 0.3 % (0-2.0); EOS % 2.2 % (0-4.5); HEMATOCRIT 31.8 % (32.4-45.2); HEMOGLOBIN 10.6 GM/dL (10.7-15.3); LYMPH % 11.2 % (8-40); MCHC 33.4 g/dl (32.0-36.0); MEAN CELL VOLUME 95.6 fl (80-96); MEAN PLT VOLUME 11.1 fl (7.5-11.1); MONO % 13.4 % (3.8-10.2); NEUT % 72.9 % (42.8-82.8); PLATELET COUNT 74 K/MM3 (134-434); RBC 3.33 M/mm3 (3.60-5.2); RDW 14.2 % (11.6-15.6); WHITE BLOOD COUNT 4.4 K/mm3 (4.0-10.0)
[2019-01-31 03:25] LABS: INR 1.62 (0.83-1.09); PROTHROMBIN TIME (PATIENT) 19.2 SEC (9.7-13.0)
[2019-01-31 03:52] LABS: ALBUMIN 2.7 g/dl (3.4-5.0); BILIRUBIN,TOTAL 1.4 mg/dL (0.2-1); BLOOD UREA NITROGEN 26.2 mg/dL (7-18); CALCIUM 8.6 mg/dL (8.5-10.1)
--- NOTE | 2019-01-31 04:07 | PDOC ---
Attending Attestation - HPI HPI: 01/31/19 03:59 63f hx MAC (treated ?, intermittent bronchoscopies, last 2 yrs ago, follows w/ Dr. Gely Cox @ [facility]), cirrhosis, hepatic thrombosis on pradaxa, currently listed for lung transplant, presents with hemoptyis. Awoke from sleep feeling something in her lungs, then had a coughing fit and coughed up blood. Denies any fevers, no CP SOB. No vomiting. No brbpr, no melena. No abd pain. - Physicial Exam PE: 01/31/19 04:04 resting in bed, appears tired no conjunctival pallor irritated oropharynx, small amt blood visible on posterior pharynx coarse breath sounds soft nt nd abdomen - Medical Decision Making 01/31/19 04:07 Hemoptysis , on pradaxa hypotensive to 90's systolic from baseline 110's-120's. labs cbc T&S CXR will contact pt's director of corporate strategy Dr. Gely Cox @ [facility] as pt may require transfer and bronchoscopy 01/31/19 04:10 01/31/19 04:38
[2019-01-31] MEDS ORDERED: AZTREONAM 2 GM in DEXTROSE 5%-WATER 100 ML IVPB ONE (04:34)
[2019-01-31 04:38] VITALS: BP 100/47; PULSE 80
[2019-01-31] MEDS ORDERED: SODIUM CHLORIDE 0.9% 500 ML INFUS.BAG IV ONE (04:38)
--- NOTE | 2019-01-31 15:30 | EKG ---
Test Reason : Blood Pressure : / mmHG Vent. Rate : 074 BPM Atrial Rate : 074 BPM P-R Int : 154 ms QRS Dur : 088 ms QT Int : 392 ms P-R-T Axes : 048 010 043 degrees QTc Int : 435 ms NORMAL SINUS RHYTHM NORMAL ECG WHEN COMPARED WITH ECG OF 17-JUN-2017 05:46, NO SIGNIFICANT CHANGE WAS FOUND Confirmed by NAYELI BURDICK MD ([id number]) on 01/31/2019 3:30:03 PM Referred By: Confirmed By:NAYELI BURDICK MD
== END 2019-01-31 06:43 | disposition short-term general hospital (02) ==
LOC: JER 02:43
DX: R04.2 Hemoptysis (principal); K74.69 Other cirrhosis of liver; Z79.01 Long term (current) use of anticoagulants; Z87.09 Personal history of other diseases of the respiratory system; A31.0 Pulmonary mycobacterial infection; B96.5 Pseudomonas (aeruginosa) (mallei) (pseudomallei) as the cause of diseases classified elsewhere
CPT/HCPCS: 36415; 71046-TC-FY; 80053; 85025; 85610; 85730; 86850; 86900; 86901; 93005; 93010; 99284-25

== ENCOUNTER 2020-03-22 19:05 | Emergency (ER) | payer BC, OTHER ==
[2020-03-22 19:09] VITALS: TEMP 97.5; BMI 27.4
--- OUTSIDE RECORDS SUMMARY | 2020-03-22 19:16 | XMS ---
:1955 Author Organization [facility] Care Team Providers Name Role Phone JEANE ALEJANDRA Unavailable Unavailable PAZ BHAKTA Unavailable Unavailable EMERGENCY SERVICE, X Unavailable Unavailable IHSAN JOHN Unavailable Unavailable Re-disclosure Warning The records that you are about to access may contain information from federally- assisted alcohol or drug abuse programs. If such information is present, then the following federally mandated warning applies: This information has been disclosed to you from records protected by federal confidentiality rules (42 CFR part 2). The federal rules prohibit you from making any further disclosure of this information unless further disclosure is expressly permitted by the written consent of the person to whom it pertains or as otherwise permitted by 42 CFR part 2. A general authorization for the release of medical or other information is NOT sufficient for this purpose. The Federal rules restrict any use of the information to criminally investigate or prosecute any alcohol or drug abuse patient.The records that you are about to access may contain highly sensitive health information, the redisclosure of which is protected by Article 27-F of the [facility] Public Health law. If you continue you may haveaccess to information: Regarding HIV / AIDS; Provided by facilities licensed or operated by the [facility] Office of Mental Health; or Provided by the [facility] Office for People With Developmental Disabilities. If such information is present, then the following [facility] mandated warning applies: This information has been disclosed to you from confidential records which are protected by state law. State law prohibits you from making any further disclosure of this information without the specific written consent of the person to whom it pertains, or as otherwise permitted by law. Any unauthorized further disclosure in violation of state law may result in a fine or longterm sentence or both. A general authorization for the release of medical or other information is NOT sufficient authorization for further disclosure. Encounters Encounter Providers Location Date Indications Data Source(s ) Emergency Attender: 12/19/2019 COUGHING UP BLOOD [facility] ALVARO, 05:06:00 AM [facility] Care JARRETTYAttender: [employer] [facility], XAdmitter: IHSAN JOHN COUGHING UP BLOOD Inpatient Attender: [place], 12/24/2018 03:42:00 HEMOPTYSIS [facility] ERICAdmitter: YONY, PM EDT - 12/24/2018 [facility] EmiliaTeresa 11:30:00 PM [employer] HEMOPTYSIS Insurance Providers Payer Policy type Policy ID Covered Covered libertarian's Policy Pl an name / Coverage libertarian ID relationship to [employer] [facility] type steinberg GHI PPO [id number] SP [id number] BC PPO [id number] SP [id number] MOLLY [id number] PPO [id number] SP [id number] GHI PPO [id number] SP [id number] PPO [id number] SP [id number] Problems, Conditions, and Diagnoses Code Display Name Description Problem Type Effective Data Sour ce(s) Dates Z88.0 Allergy status to ALLERGY STATUS TO Diagnosis 12/19/2019 [place] penicillin PENICILLIN 05:06:00 AM [facility] [employer] [facility] [employer] [facility] Z20.828 Contact with and CONTACT W AND Diagnosis 12/19/2019 [facility] (suspected) EXPOSURE TO OTH 05:06:00 AM [facility] exposure to other VIRAL [employer] viral COMMUNICABLE communicable DISEASES diseases I10 Essential ESSENTIAL Diagnosis 12/19/2019 [place] (primary) (PRIMARY) 05:06:00 AM [facility] hypertension HYPERTENSION [employer] ration R04.2 Hemoptysis HEMOPTYSIS Diagnosis 12/19/2019 [place] 05:06:00 AM [facility] [employer] [facility] R05 Cough COUGH Diagnosis 12/19/2019 [place] 05:06:00 AM [facility] [employer] [facility] Results ID Date Data Source [id number] 12/22/2019 10:02:00 AM [facility]T [facility] Name Value Range Interpretation Code Description Data Maria rce(s) Supporting Document(s ) SARS-COV-2 [facility] PCR This lab was ordered by [address] and reported by [facility]. ID Date Data Source [id number] 12/19/2019 11:33:00 PM EDT [facility] Name Value Range Interpretation Code Description Data Maria rce(s) Supporting Document(s ) SARS-COV-2 [facility] PCR This lab was ordered by [address] and reported by [facility]. ID Date Data Source [id number] 12/19/2019 12:00:00 AM EDT [facility] Name Value Range Interpretation Code Description Data Maria rce(s) Supporting Document(s ) SARS-COV-2 [place] RNA RT-PCR [facility] This lab was ordered by [facility] and reported by [facility]. ID Date Data Source [id number] 11/14/2019 12:00:00 AM EDT [facility] Name Value Range Interpretation Code Description Data Maria rce(s) Supporting Document(s ) 2019-nCoV [facility] RNA XXX BOB+probe- Imp This lab was ordered by [facility] and reported by [employer] Procedure
--- NOTE | 2020-03-22 19:49 | PDOC ---
History of Present Illness - General Chief Complaint: Hemoptysis Stated Complaint: COUGHING BLOOD Time Seen by Provider: 03/22/20 19:47 - History of Present Illness Initial Comments: HPI: 03/22/20 19:48 64 yo F PMH MAC colonization, chronic pseudomonal lung infection, hepatic thrombus (unknown etiology), cirrhosis (unknown etiology, possibly cryptogenic), on Pradaxa, recently diagnosed kidney stone on 03/12/2020 at [place] which will reportedly require stent (still requiring appointment), presenting with hemoptysis. Notes that a month ago she had similar symptoms with cough and hemoptysis, but resolved after several days. Developed similar symptoms yesterday and today, unsure how many episodes of coughing or how much blood. Feels similar to prior episodes of bronchitis. Here today because felt like she had produced a lot of blood. Denies SANTOYO, CP, SOB, N/V, lightheadedness, syncope, dizziness. Endorses chronic PATTERSON and intermittent 9/10 sharp R flank pain, lasting seconds to minutes. Has not been taking anything for pain due to concern about her previous liver issues. Has an upcoming appointment with her machine repair person in early April. PCP: Dr. Angeles Bonilla. [facility] Pulm: Dr. Bejarano, [place] ROS: GENERAL/CONSTITUTIONAL: denies fever, chills, diaphoresis, generalized weakness HEAD, EYES, EARS, NOSE AND THROAT: denies rhinorrhea, nasal congestion, throat p ain, throat swelling NEUROLOGIC: denies headache, weakness, dizziness, mental status changes CARDIOVASCULAR: denies chest pain, syncope, palpitations, irregular heart rate, lightheadedness, peripheral edema RESPIRATORY: denies cough, shortness of breath, dyspnea with exertion, orthopnea, wheezing, stridor, hemoptysis GASTROINTESTINAL: denies abdominal pain, abdominal distension, nausea, vomiting, diarrhea, constipation, melena, hematochezia GENITOURINARY: denies dysuria, frequency, urgency, hesitancy, hematuria, flank pain, genital pain MUSCULOSKELETAL: denies myalgia, arthralgia, joint swelling, back pain, neck pain SKIN: denies rash, itching PE: Gen: well-developed, well-nourished, appears anxious Neuro: AAOX4, CN II-XII intact HEENT: atraumatic, normocephalic Neck: trachea midline, supple CV: regular rate, regular rhythm, no murmurs, rubs, or gallops Pulm: CTA b/l, no wheezing Abd: soft, non-distended, non-tender MSK: full ROM, intact pulses Extr: no edema, no deformities Skin: warm, dry MDM: Concern for possible bronchitis. - CBC - CXR - CMP - acetaminophen 650 mg - reassess 03/22/20 21:02 CXR with bilateral lung markings, appear to be chronic and improved since last CXR. 03/22/20 21:05 WBC 1.8, platelets 51. Both are similar to prior, albeit from 2 years ago. Hgb 10.5, similar to prior. 03/22/20 21:39 CMP with AST of 41, alk phos of 230. Otherwise unconcerning. 03/22/20 22:[address] Wyatt's office, will await call back. 03/22/20 23:[address] Wyatt's office. Per answering service, Dr. Gaffney (covering doctor) does not have access to any medical records. Will encourage patient to call and make appointment as quickly as possible, dc for further outpatient management. Past History - Medical History Allergies/Adverse Reactions: Allergies Allergy/AdvReac Type Severity Reaction Status Date / Time amoxicillin [Amoxicillin] Allergy Verified 03/22/20 19:09 Home Medications: Ambulatory Orders Nadolol [Corgard] 40 mg PO DAILY #0 tablet 01/14/12 Furosemide [Lasix -] 40 mg PO DAILY 02/15/17 Albuterol 2.5/Ipratropium 0.5 [Duoneb -] 1 neb NEB Q4H PRN 09/07/19 Pantoprazole Sodium [Protonix -] 40 mg PO DAILY 09/07/19 Spironolactone [Aldactone] 50 mg PO DAILY 09/07/19 COPD: No GI Disorders: Yes (ESOPHAGEAL VARICES) Liver Disease: Yes (CIRRHOSIS (PSC), ON TRANSPLANT LIST.) - Surgical History Abdominal Surgery: Yes (ERCP, VARICES BANDING, STENTS) - Immunization History Td Vaccination: Yes Immunization Up to Date: (UNSURE) - Psycho-Social/Smoking History Smoking Status: No Smoking History: Never smoked Years of Tobacco Use: 0 Have you smoked in the past 12 months: No Number of Cigarettes Smoked Daily: 0 Cigars Per Day: 0 - Substance Abuse Hx (Audit-C & DAST Scrn) How often the patient has a drink containing alcohol: Never Score: In Men: 4 or > Positive; In Women: 3 or > Positive: 0 Screen Result (Pos requires Nsg. Audit-10AR): Negative In the last yr the pt used illegal drug/Rx for NonMed reason: No Score: Yes response is considered Positive: 0 Screen Result (Positive result requires Nsg. DAST-10): Negative *Physical Exam - Vital Signs Last Vital Signs Temp Pulse Resp BP Pulse Ox 97.5 F L 70 18 114/40 L 100 03/22/20 19:06 03/22/20 19:06 03/22/20 19:06 03/22/20 19:06 03/22/20 19:06 ED Treatment Course - LABORATORY CBC & Chemistry Diagram: 03/22/20 20:44 03/22/20 20:44 Discharge - Discharge Information Problems reviewed: Yes Clinical Impression/Diagnosis: Hemoptysis Condition: Stable Disposition: HOME - Admission No - Follow up/Referral Referrals: Angeles Wyatt [Primary Care Provider] - - Patient Discharge Instructions Additional Instructions: You were seen with coughing up blood. Your imaging did not show any concerning findings. However, you have a very low white blood cell count, which needs to be closely monitored. You also have some abnormalities in your liver enzymes. You may have cough, including coughing blood, for 1 to 3 more weeks. Please call your primary care doctor to make a follow up appointment as quickly possible. Return to the ER if you develop new or worsening symptoms, especially lightheadedness, chest pain, or shortness of breath. - Post Discharge Activity
[2020-03-22] MEDS ORDERED: ACETAMINOPHEN 325 MG TABLET (FP) PO ONE (20:08)
[2020-03-22] MEDS ORDERED: ACETAMINOPHEN 325 MG TABLET (FP) ONE (20:34)
[2020-03-22 21:01] LABS: BASO % 0.2 % (0-2.0); EOS % 1.2 % (0-4.5); HEMATOCRIT 32.1 % (32.4-45.2); HEMOGLOBIN 10.5 GM/dL (10.7-15.3); LYMPH % 17.9 % (8-40); MCH 29.9 pg (25.7-33.7); MCHC 32.6 g/dl (32.0-36.0); MEAN CELL VOLUME 91.6 fl (80-96); MONO % 11.9 % (3.8-10.2); NEUT % 68.8 % (42.8-82.8); PLATELET COUNT 51 K/MM3 (134-434); RBC 3.51 M/mm3 (3.60-5.2); RDW 16.2 % (11.6-15.6)
[2020-03-22 21:05] LABS: WHITE BLOOD COUNT 1.8 K/mm3 (4.0-10.0)
[2020-03-22 21:15] LABS: POTASSIUM 3.6 mmol/L (3.5-5.1)
[2020-03-22 21:17] LABS: ALBUMIN 2.5 g/dl (3.4-5.0); BLOOD UREA NITROGEN 24.2 mg/dL (7-18); CALCIUM 7.8 mg/dL (8.5-10.1)
[2020-03-22 21:20] LABS: CREATININE 1.1 mg/dL (0.55-1.3)
[2020-03-22 21:22] LABS: BILIRUBIN,TOTAL 1.6 mg/dL (0.2-1); TOT PROT 7.5 g/dl (6.4-8.2)
--- NOTE | 2020-03-22 21:51 | PDOC ---
Documentation entered by Aakash Talbert SCRIBE, acting as scribe for Debi Magallanes MD. eDbi Magallanes MD: This documentation has been prepared by the [place] [employer] X[employer], SCRIBE, under my direction and personally reviewed by me in its entirety. I confirm that the documentation accurately reflects all work, treatment, procedures, and medical decision making performed by me. Attending Attestation - Resident Resident Name: Cindy Hodges - ED Attending Attestation I have performed the following: I have examined & evaluated the patient, The case was reviewed & discussed with the resident, I agree w/resident's findings & plan, Exceptions are as noted - HPI HPI: 03/22/20 19:50 The patient is a 64 year old female with a significant PMH of MAC colonization and pseudomonal lung infection (appears to be chronic, follows at [facility]), hepatic thrombosis (unknown etiology), cirrhosis (unknown etiology, possibly cryptogenic), bronchiectasis who presents to the emergency department for hemoptysis since yesterday. Pt reports intermittent R flank pain secondary to her Kidney stones that was diagnosed 10days ago (03/12/20). Pt states she has not taken any medication because she was worried about her kidney and liver function. The patient denies chest pain, shortness of breath, headache and dizziness. Denies fever, chills, vomiting, diarrhea and constipation. Denies dysuria, frequency, urgency and hematuria. Allergies: amoxicillin PCP: Angeles Cai - Physicial Exam PE: 03/22/20 21:44 64 yo female p/w chronic hemoptysis that she feels has worsened in the past few weeks pt states she had covid in September but did not require hospitalization Her jig box operator is at [facility] 03/22/20 21:55 64 yo female in no acute distress head ncat oropharynx no active bleeding neck supple lungs no wheezing, no crackles cvs [id number] abdomen nontender skin warm and dry extremities no edema neuro axox3,ambulatory 03/22/20 23:26 - Medical Decision Making 03/22/20 23:22 pt does not require blood transfusion she has not had any hemoptysis during the observation period she is 100% pulse ox on room air, she is not is any resp distress it is recommenced she followup with her jig box operator 03/22/20 23:28 03/23/20 01:23 Discharge - Discharge Information Problems reviewed: Yes Clinical Impression/Diagnosis: Hemoptysis Condition: Stable Disposition: HOME - Follow up/Referral Referrals: Angeles Wyatt [Primary Care Provider] - - Patient Discharge Instructions Additional Instructions: You were seen with coughing up blood. Your imaging did not show any concerning findings. However, you have a very low white blood cell count, which needs to be closely monitored. You also have some abnormalities in your liver enzymes. You may have cough, including coughing blood, for 1 to 3 more weeks. Please call your primary care doctor to make a follow up appointment as quickly possible. Return to the ER if you develop new or worsening symptoms, especially lightheadedness, chest pain, or shortness of breath. - Post Discharge Activity
[2020-03-22 22:52] LABS: ANISOCYTOSIS 1+; MACROCYTOSIS 0; PLATELET ESTIMATE DECREASED; TARGET CELLS 1+; TEAR DROP CELLS 1+
[2020-03-22 23:30] VITALS: BP 108/52; PULSE 68
== END 2020-03-22 23:30 | disposition home or self-care (01) ==
LOC: JER 19:05 → SUPCPDRO 19:05 → JER 23:30
DX: R04.2 Hemoptysis (principal)
CPT/HCPCS: 36415; 71045-TC-FY; 80053; 85025; 99284-25

== ENCOUNTER 2020-10-16 02:16 | Inpatient (IN) | payer BC, OTHER ==
[2020-10-16 04:04] LABS: BASO % 0.2 % (0-2.0); EOS % 1.6 % (0-4.5); HEMATOCRIT 29.6 % (32.4-45.2); HEMOGLOBIN 9.8 GM/dL (10.7-15.3); LYMPH % 10.5 % (8-40); MCH 28.8 pg (25.7-33.7); MCHC 33.1 g/dl (32.0-36.0); MEAN CELL VOLUME 86.8 fl (80-96); MEAN PLT VOLUME 10.5 fl (7.5-11.1); MONO % 13.9 % (3.8-10.2); NEUT % 73.8 % (42.8-82.8); PLATELET COUNT 98 K/MM3 (134-434); RBC 3.41 M/mm3 (3.60-5.2); RDW 15.7 % (11.6-15.6); WHITE BLOOD COUNT 4.6 K/mm3 (4.0-10.0)
[2020-10-16 04:15] LABS: INR 1.53 (0.83-1.09); PROTHROMBIN TIME (PATIENT) 18.3 SEC (9.7-13.0)
[2020-10-16 04:18] LABS: ACTIVATED PTT 30.9 SECONDS (25.2-36.5)
[2020-10-16 04:23] LABS: CHLORIDE 103 mmol/L (98-107); SODIUM 135 mmol/L (136-145)
[2020-10-16 04:25] LABS: CALCIUM 7.8 mg/dL (8.5-10.1); GLUCOSE,RANDOM 88 mg/dL (74-106)
[2020-10-16 04:26] LABS: ALBUMIN 2.7 g/dl (3.4-5.0); ANION GAP 5 MMOL/L (8-16); BLOOD UREA NITROGEN 19.3 mg/dL (7-18); CO2 27 mmol/L (21-32)
[2020-10-16 04:29] LABS: CREATININE 1.1 mg/dL (0.55-1.3); SGOT/AST 50 U/L (15-37); SGPT/ALT 25 U/L (13-61)
[2020-10-16 04:30] LABS: TOT PROT 7.7 g/dl (6.4-8.2)
[2020-10-16 04:31] LABS: ALK PHOS 226 U/L (45-117)
[2020-10-16] MEDS ORDERED: PANTOPRAZOLE SODIUM 40 MG VIAL IVPUSH ONE (05:02)
[2020-10-16] MEDS ORDERED: PANTOPRAZOLE SODIUM 40 MG VIAL ONE (05:03)
[2020-10-16] MEDS ORDERED: SODIUM CHLORIDE 1,000 ML IV ONE (05:03)
[2020-10-16] MEDS: ALBUTEROL SO4 2.5/IPRATROPIUM 0.5 INH SOL 3 ML VIAL.NEB. NEB SCH ×4 (08:06→20:19)
[2020-10-16] MEDS: ACETIC ACID 2% OTIC SOLN 15ML BOTTLE AU SCH ×3 (09:39→20:19)
[2020-10-16] MEDS ORDERED: FLUTICASONE PROP 0.05% 16 GM NASAL SPRAY NS SCH (10:00)
[2020-10-16] MEDS ORDERED: PATIENT'S OWN MEDICATION (NON-FORMULARY) (Spironolactone [Aldactone] 50 MG Tablet) PO SCH (10:00)
[2020-10-16] MEDS ORDERED: FUROSEMIDE 40 MG TABLET (FP) PO SCH (10:00)
[2020-10-16] MEDS ORDERED: NADOLOL 20 MG TABLET (FP) PO SCH (10:00)
[2020-10-16] MEDS ORDERED: SPIRONOLACTONE 25 MG TABLET PO SCH (10:00)
[2020-10-16] MEDS ORDERED: PANTOPRAZOLE 40 MG TABLET PO SCH (10:00)
[2020-10-16 10:12] VITALS: BMI 28.3
[2020-10-16] MEDS ORDERED: cefTAZidime PENTAHYDRATE 2 GM/11.5 ML SYRINGE (RESTRICTED TO ID) IVPUSH SCH (13:45)
[2020-10-16] MEDS ORDERED: SODIUM CHLORIDE 500 ML IV STA (13:50)
[2020-10-16 14:07] VITALS: TEMP 97.8
[2020-10-16] MEDS ORDERED: DEXTROSE 5%-WATER - 50 ML IVPB ONE ×2 (14:25→20:42)
[2020-10-16] MEDS ORDERED: cefTAZidime PENTAHYDRATE 2 GM VIAL (RESTRICTED TO ID) ONE ×2 (14:25→20:42)
[2020-10-16] MEDS: WATER IVPB SCH ×2 (14:32→21:18)
[2020-10-16] MEDS: DEXTROSE 5% IVPB SCH ×2 (14:32→21:18)
[2020-10-16] MEDS: CEFTAZIDIME PENTAHYDRATE IVPB SCH ×2 (14:32→21:18)
[2020-10-16] MEDS ORDERED: SODIUM CHLORIDE 1,000 ML IV STA (17:45)
[2020-10-16] MEDS: guaiFENesin/D-METHORPHAN HB 10 ML UNIT-DOSE CUPS PO PRN ×2 (17:57→21:19)
[2020-10-16] MEDS ORDERED: DEXTROSE 5% IVPB SCH (18:00)
[2020-10-16] MEDS ORDERED: WATER IVPB SCH (18:00)
[2020-10-16] MEDS ORDERED: CEFTAZIDIME PENTAHYDRATE IVPB SCH (18:00)
[2020-10-16 20:42] LABS: HEMATOCRIT 25.8 % (32.4-45.2); HEMOGLOBIN 8.7 GM/dl (10.7-15.3); MCH 29.4 pg (25.7-33.7); MCHC 33.7 g/dl (32.0-36.0); MEAN CELL VOLUME 87.3 fl (80-96); MEAN PLT VOLUME 9.3 fl (7.5-11.1); RBC 2.96 M/mm3 (3.60-5.2)
[2020-10-16 20:51] LABS: PLATELET COUNT 52 K/MM3 (134-434); WHITE BLOOD COUNT 2.4 K/mm3 (4.0-10.8)
[2020-10-16 20:58] VITALS: BP 92/47; PULSE 72
[2020-10-16 23:08] LABS: PLATELET ESTIMATE DECREASED
== END 2020-10-16 21:25 | disposition short-term general hospital (02) | DRG 191 ==
LOC: FER 02:16 → FM/S 08:32
PROVIDERS: ADMIT Hospitalist; ATTEND Nurse Practitioner Acute Care
DX: J47.0 Bronchiectasis with acute lower respiratory infection (principal); R04.2 Hemoptysis; K83.01 Primary sclerosing cholangitis; J18.9 Pneumonia, unspecified organism; K80.20 Calculus of gallbladder without cholecystitis without obstruction; N20.0 Calculus of kidney
CPT/HCPCS: 36415; 71045-TC-FY; 71250-TC; 80053; 82550; 84484; 85025; 85610; 85730; 93005; 94640; 99285-25; C9803; U0003; U0005

== ENCOUNTER 2021-04-03 14:05 | Emergency (ER) | payer BC ==
[2021-04-03 14:26] VITALS: TEMP 97.5; BMI 27.6
[2021-04-03 17:26] LABS: BASO % 0.9 % (0-2.0); EOS % 1.2 % (0-4.5); HEMATOCRIT 33.2 % (32.4-45.2); LYMPH % 13.3 % (8-40); MCH 29.5 pg (25.7-33.7); MCHC 33.1 g/dl (32.0-36.0); MEAN CELL VOLUME 89.1 fl (80-96); MEAN PLT VOLUME 9.7 fl (7.5-11.1); NEUT % 72.6 % (42.8-82.8); PLATELET COUNT 58 10^3/uL (134-434); RBC 3.73 M/mm3 (3.60-5.2); RDW 16.1 % (11.6-15.6); WHITE BLOOD COUNT 3.6 K/mm3 (4.0-10.0)
[2021-04-03 17:40] LABS: CHLORIDE 106 mmol/L (98-107); SODIUM 138 mmol/L (136-145)
[2021-04-03 17:42] LABS: CALCIUM 8.4 mg/dL (8.5-10.1)
[2021-04-03 17:43] LABS: ALBUMIN 2.5 g/dl (3.4-5.0); ANION GAP 9 MMOL/L (8-16); BLOOD UREA NITROGEN 24.4 mg/dL (7-18); CO2 24 mmol/L (21-32); GLUCOSE,RANDOM 84 mg/dL (74-106)
[2021-04-03 17:46] LABS: CREATININE 1.2 mg/dL (0.55-1.3); SGOT/AST 55 U/L (15-37); SGPT/ALT 28 U/L (13-61)
[2021-04-03 17:47] LABS: BILIRUBIN,TOTAL 2.6 mg/dL (0.2-1)
[2021-04-03 17:48] LABS: TOT PROT 8.4 g/dl (6.4-8.2)
[2021-04-03 17:49] LABS: ALK PHOS 210 U/L (45-117)
[2021-04-03 17:51] LABS: N-TERMINAL BNP 215.6 pg/ml (5-125)
[2021-04-03] MEDS ORDERED: morphine CARPU-JECT 4 MG/1 ML DISP.SYRIN IVPUSH ONE (18:49)
[2021-04-03] MEDS ORDERED: morphine SULFATE 4 MG/ML VIAL ONE (19:04)
[2021-04-03] MEDS ORDERED: DOXYCYCLINE INJECTION 100 MG in DEXTROSE 5%-WATER 100 ML IVPB ONE (19:07)
[2021-04-03] MEDS ORDERED: DEXAMETHASONE SOD PHOSPHATE 10 MG/1 ML VIAL IVPUSH ONE (19:08)
[2021-04-03] MEDS ORDERED: DEXAMETHASONE SOD PHOSPHATE 10 MG/1 ML VIAL ONE (19:12)
[2021-04-03] MEDS ORDERED: ALBUTEROL SO4 2.5/IPRATROPIUM 0.5 INH SOL 3 ML VIAL.NEB. NEB ONE (20:03)
[2021-04-03] MEDS: ALBUTEROL SO4 2.5/IPRATROPIUM 0.5 INH SOL 3 ML VIAL.NEB. NEB SCH ×2 (20:16→20:24)
[2021-04-03 20:45] VITALS: BP 100/48; PULSE 55
== END 2021-04-03 20:46 | disposition home or self-care (01) ==
LOC: JER 14:05
PROC: 3E033GC Introduction of Other Therapeutic Substance into Peripheral Vein, Percutaneous Approach (ICD-10-PCS; principal; 2021-04-03)
PROC: 3E0F7GC Introduction of Other Therapeutic Substance into Respiratory Tract, Via Natural or Artificial Opening (ICD-10-PCS; 2021-04-03)
DX: J47.9 Bronchiectasis, uncomplicated (principal)
CPT/HCPCS: 36415; 71046-TC-FY; 71275-TC; 80053; 82550; 83605; 83880; 84443; 84484; 85025; 85379; 87804; 93005; 93010; 99285-25; C9803; J1100; Q9967; U0003; U0005

== ENCOUNTER 2021-09-25 17:08 | Emergency (ER) | payer OTHER, BC ==
[2021-09-25 17:33] VITALS: BP 99/50; PULSE 55; TEMP 97.9; BMI 27.2
[2021-09-25 18:44] LABS: HEMATOCRIT 32.2 % (32.4-45.2); MCH 31.4 pg (25.7-33.7); MCHC 34.3 g/dl (32.0-36.0); MEAN CELL VOLUME 91.4 fl (80-96); MEAN PLT VOLUME 9.8 fl (7.5-11.1); RBC 3.52 10^6/uL (3.60-5.2); RDW 16.4 % (11.6-15.6); WHITE BLOOD COUNT 2.8 10^3/uL (4.0-10.8)
[2021-09-25 19:01] LABS: ALBUMIN 2.9 g/dl (3.4-5.0); BILIRUBIN,TOTAL 1.9 mg/dl (0.2-1); CALCIUM 8.5 mg/dl (8.5-10); CREATININE 1.2 mg/dl (0.55-1.3); TOT PROT 7.6 g/dl (6.4-8.2)
[2021-09-25] MEDS ORDERED: morphine CARPU-JECT 4 MG/1 ML DISP.SYRIN IVPUSH ONE ×2 (22:29)
[2021-09-25] MEDS ORDERED: morphine SULFATE 4 MG/ML VIAL ONE (22:31)
== END 2021-09-25 22:54 | disposition left against medical advice (07) ==
LOC: FER 17:08
PROC: 3E033NZ Introduction of Analgesics, Hypnotics, Sedatives into Peripheral Vein, Percutaneous Approach (ICD-10-PCS; principal; 2021-09-25)
DX: I81 Portal vein thrombosis (principal)
CPT/HCPCS: 36415; 71045-TC-FY; 74177-TC; 80053; 81003; 83690; 85025; 99285-25; Q9967

== ENCOUNTER 2022-02-04 20:36 | Emergency (ER) | payer OTHER, BC ==
[2022-02-04 21:25] VITALS: BP 109/54; PULSE 65; RESP 18; TEMP 98.1; BMI 27.0
[2022-02-04 21:53] LABS: EPITHELIAL CELLS FEW /hpf
[2022-02-04] MEDS ORDERED: SULFAMETHOXAZOLE/TRIMETHOPRIM 800MG/160MG D.S. TABLET PO ONE (22:09)
[2022-02-04] MEDS ORDERED: PHENAZOPYRIDINE HCL 100 MG TABLET (FP) PO ONE (22:10)
[2022-02-04] MEDS ORDERED: SULFAMETHOXAZOLE/TRIMETHOPRIM 800MG/160MG D.S. TABLET ONE (22:11)
[2022-02-04] MEDS ORDERED: PHENAZOPYRIDINE HCL 100 MG TABLET (FP) ONE (22:11)
== END 2022-02-04 22:21 | disposition home or self-care (01) ==
LOC: SUPCPDRO 20:36 → FER 20:36
DX: R30.0 Dysuria (principal)
CPT/HCPCS: 81003; 81015; 87086; 87186; 99283-25